=== PATIENT | female | born 1955 | race Hispanic/Latino ===

== ENCOUNTER 2018-05-23 19:18 | Emergency (ER) | payer OTHER ==
[~2018-05-23] VITALS: Ht 157.5 cm; Wt 84.8 kg
[2018-05-23 20:42] LABS: PLATELET COUNT 324 K/uL (152-353)
[2018-05-23 20:45] LABS: POTASSIUM 3.8 mmol/L (3.6-5.2); SODIUM 135 mmol/L (136-145)
[2018-05-23] MEDS ORDERED: NITROSTAT0.4 MG SL (21:05)
[2018-05-23] MEDS ORDERED: METFORMIN HYD1000 MG PO (21:06)
[2018-05-23] MEDS ORDERED: GLIM4TAB PO (21:07)
[2018-05-23] MEDS ORDERED: LISI20TA11 PO (21:08)
[2018-05-23] MEDS ORDERED: METO50TA27 PO (21:10)
[2018-05-23] MEDS ORDERED: BAYER ASPIRIN E81 MG PO (21:11)
[2018-05-23 22:07] VITALS: BP 126/76; TEMP 98.3
== END 2018-05-23 22:09 | disposition home or self-care (01) ==
LOC: ED 19:18
DX: N30.91 Cystitis, unspecified with hematuria (principal); K29.70 Gastritis, unspecified, without bleeding
CPT/HCPCS: 36415; 80053; 81000; 82150; 82550; 82553; 83690; 84484; 85027; 93005; 99283

== ENCOUNTER 2020-11-08 13:04 | Outpatient (CLI) | payer OTHER ==
[~2020-11-08 13:04] MED LIST: BAYER ASPIRIN E81 MG PO; GLIM4TAB PO; LISI20TA11 PO; METFORMIN HYD1000 MG PO; METO50TA27 PO; NITROSTAT0.4 MG SL
== END 2020-11-08 23:00 | disposition home or self-care (01) ==
LOC: RAD 13:04
PROVIDERS: ATTEND Nurse Practitioner Family
DX: J32.9 Chronic sinusitis, unspecified (principal); H93.8X9 Other specified disorders of ear, unspecified ear; I10 Essential (primary) hypertension; E11.9 Type 2 diabetes mellitus without complications; E78.49 Other hyperlipidemia; R06.02 Shortness of breath; R07.89 Other chest pain; M79.605 Pain in left leg; M79.604 Pain in right leg; M25.552 Pain in left hip; M25.551 Pain in right hip
CPT/HCPCS: 93005

== ENCOUNTER 2021-01-19 14:59 | Observation (INO) | payer OTHER ==
[~2021-01-19] VITALS: Ht 162.6 cm; Wt 95.3 kg
[2021-01-19] VITALS (8 sets, daily range): BP systolic 131–177; BP diastolic 65–88; TEMP 98.9–99.8; Ht 162.6 cm; Wt 95.3 kg
[2021-01-19 16:00] LABS: PLATELET COUNT 226 K/uL (152-353)
[2021-01-19 16:03] LABS: POTASSIUM 4.4 mmol/L (3.6-5.2); SODIUM 138 mmol/L (136-145)
[2021-01-19 16:09] LABS: PARTIAL THROMBOPLASTIN TIME 23.2 SECONDS (24.5-33.6)
[2021-01-19] MEDS ORDERED: CRESTOR5 MG PO (18:50)
[2021-01-19] MEDS ORDERED: JARDIANCE25 MG PO (18:51)
[2021-01-19] MEDS ORDERED: LOSA50TA PO (18:52)
[2021-01-19] MEDS ORDERED: PREG75CA PO (19:01)
[2021-01-19] MEDS ORDERED: METO100T37 PO (19:01)
[2021-01-19] MEDS ORDERED: TRICOR145 M1 PO (19:02)
[2021-01-19] MEDS ORDERED: GLIPIZIDE ER PO (19:04)
[2021-01-19] MEDS ORDERED: OMEGA 3 PO (19:06)
[2021-01-19] MEDS ORDERED: SM ASPIRIN ADUL81 MG PO (19:07)
[2021-01-20 00:02] VITALS: BP 142/76; TEMP 99.5
[2021-01-20 04:00] VITALS: BP 159/84; TEMP 98.8
[2021-01-20 05:42] LABS: PLATELET COUNT 195 K/uL (152-353)
[2021-01-20 06:07] LABS: POTASSIUM 4.1 mmol/L (3.6-5.2)
[2021-01-20 08:00] VITALS: BP 189/80; TEMP 97.8
[2021-01-20 12:00] VITALS: BP 146/56; TEMP 98.3
--- NOTE | 2021-01-20 14:17 | NUR ---
PT SITTING ON THE BED, ALERT AND ORIENTED. NO VOICED COMPLAINTS. PTS SAT=95% ON ROOM AIR. NO NAD NOTED. DENIES ANY PAIN/DISCOMFORT. PT COMPLIANT WITH MEDS AND TREATMENT. IV SITE TO RFA INTACT WITH NO SWELLING OR REDNESS PRESENT. NO VOICED COMPLAINTS. PTS APPETITE ADEQUATE. PTS GLUCOSE LEVELS INCREASED R/T DEXAMETHASONE, PER HCP MED D/C'D. SPOKE WITH DAUGHTERVENKAT TO GIVE UPDATE ON PT. PT DISCHARGED TO GO HOME PER HCP. PRESCRIPTION FOR MEDS WRITTEN. PT WILL F/U WITH PCP IN 3 DAYS, DAUGHTER WILL SCHEDULE THE APPOINTMENT.
--- NOTE | 2021-01-20 16:55 | NUR ---
PT DISCHARGED TO GO HOME. DISCHARGE INSTRUCTIONS AND PRESCRIPTIONS GIVEN TO PT AND VERBALIZED UNDERSTANDING. PM MEDS ADMINISTERED PRIOR TO PT GOING HOME. DAUGHTER COMING TO PICK PT UP AT [phone]. PTS IV SITE D/C'D AND NO SWELLING OR REDNESS NOTED TO SITE. PT DENIES ANY PAIN OR DISCOMFORT.
== END 2021-01-20 17:11 | disposition home or self-care (01) ==
LOC: ED 14:59 → MED/SURG 16:20
PROVIDERS: Hospitalist; ADMIT Family Medicine; ATTEND Family Medicine
DX: U07.1 COVID-19 (principal); R07.89 Other chest pain; I25.10 Atherosclerotic heart disease of native coronary artery without angina pectoris; E11.9 Type 2 diabetes mellitus without complications; I10 Essential (primary) hypertension; E78.49 Other hyperlipidemia; E66.8 Other obesity; R06.02 Shortness of breath
CPT/HCPCS: 80053; 82150; 82550; 82728; 83690; 83735; 83880; 84100; 84484; 85027; 85379; 85610; 85730; 86140; 87635; 93005; 94667; 99220; 99284; G0378; J0456; J1100; J1650; J2270; J3411; U0003

== ENCOUNTER 2021-02-27 14:43 | Outpatient (CLI) | payer OTHER ==
[~2021-02-27 14:43] MED LIST changes: +CRESTOR5 MG PO; +GLIPIZIDE ER PO; +JARDIANCE25 MG PO; +LOSA50TA PO; +METO100T37 PO; +OMEGA 3 PO; +PREG75CA PO; +SM ASPIRIN ADUL81 MG PO; +TRICOR145 M1 PO
[2021-02-27 15:03] LABS: PLATELET COUNT 283 K/uL (152-353)
[2021-02-27 15:22] LABS: POTASSIUM 3.9 mmol/L (3.6-5.2)
== END 2021-02-27 19:01 | disposition home or self-care (01) ==
LOC: LABW 14:43
PROVIDERS: ATTEND Internal Medicine
DX: N18.31 Chronic kidney disease, stage 3a (principal); R80.1 Persistent proteinuria, unspecified
CPT/HCPCS: 36415; 80053; 81000; 82043; 82330; 82570; 83516; 83735; 83970; 84100; 84155; 84165; 84166; 85027; 85652; 86038; 86160; 86225; 86255; 86334

== ENCOUNTER 2021-03-05 07:45 | Outpatient (CLI) | payer OTHER | END 2021-03-05 19:14 | disposition home or self-care (01) | LOC: US 07:45 | PROVIDERS: ATTEND Internal Medicine | DX: N18.31 Chronic kidney disease, stage 3a (principal) ==

== ENCOUNTER 2021-12-16 14:20 | Emergency (ER) | payer OTHER ==
[~2021-12-16] VITALS: Ht 160 cm; Wt 93.0 kg
[2021-12-16 15:53] LABS: PLATELET COUNT 219 K/uL (152-353)
[2021-12-16 16:02] LABS: POTASSIUM 3.9 mmol/L (3.6-5.2)
[2021-12-16 16:12] LABS: PARTIAL THROMBOPLASTIN TIME 25.9 SECONDS (24.5-33.6)
[2021-12-16 19:00] VITALS: BP 146/66; TEMP 98.2
== END 2021-12-16 19:30 | disposition short-term general hospital (02) ==
LOC: ED 14:20
PROVIDERS: Hospitalist
DX: R07.89 Other chest pain (principal); I20.8 Other forms of angina pectoris; U07.1 COVID-19
CPT/HCPCS: 80053; 82550; 83880; 84484; 85027; 85379; 85610; 85730; 87635; 93005; 99283; U0003

== ENCOUNTER 2022-02-08 11:46 | Outpatient (CLI) | payer OTHER | END 2022-02-08 19:08 | disposition home or self-care (01) | LOC: RAD 11:46 | PROVIDERS: ATTEND Nurse Practitioner Family | DX: E11.8 Type 2 diabetes mellitus with unspecified complications (principal); N18.30 Chronic kidney disease, stage 3 unspecified; E78.49 Other hyperlipidemia; E55.9 Vitamin D deficiency, unspecified; R89.8 Other abnormal findings in specimens from other organs, systems and tissues ==

== ENCOUNTER 2022-03-19 09:30 | Outpatient (CLI) | payer OTHER | END 2022-03-19 19:49 | disposition home or self-care (01) | LOC: MRI 09:30 | PROVIDERS: ATTEND Internal Medicine | DX: G45.9 Transient cerebral ischemic attack, unspecified (principal) ==

== ENCOUNTER 2022-06-30 09:30 | Outpatient (CLI) | payer OTHER ==
[2022-06-30 10:03] LABS: PLATELET COUNT 283 K/uL (152-353)
[2022-06-30 10:13] LABS: POTASSIUM 4.2 mmol/L (3.6-5.2)
== END 2022-06-30 21:56 | disposition home or self-care (01) ==
LOC: LABW 09:30
PROVIDERS: ATTEND Internal Medicine
DX: N18.31 Chronic kidney disease, stage 3a (principal); R80.1 Persistent proteinuria, unspecified
CPT/HCPCS: 36415; 80053; 81002; 82043; 82306; 82330; 82570; 83735; 83970; 84100; 84156; 84165; 84166; 85027; 85652; 86037; 86038; 86160; 86225

== ENCOUNTER 2022-08-25 14:53 | Outpatient (CLI) | payer OTHER | END 2022-08-25 22:45 | disposition home or self-care (01) | LOC: RAD 14:53 | PROVIDERS: ATTEND Nurse Practitioner Family | DX: M79.672 Pain in left foot (principal) ==

== ENCOUNTER 2023-01-18 10:47 | Outpatient (CLI) | payer OTHER | END 2023-01-18 19:07 | disposition home or self-care (01) | LOC: US 10:47 | PROVIDERS: ATTEND Nurse Practitioner Family | DX: M79.662 Pain in left lower leg (principal) ==